=== PATIENT | male | born 1980 | race African-American/Black ===

== ENCOUNTER 2017-09-09 10:05 | Emergency (ER) | payer MEDICAID ==
[~2017-09-09] VITALS: Ht 182.9 cm; Wt 93.5 kg
[2017-09-09] MEDS ORDERED: OXYC10 PO (10:15)
[2017-09-09 10:25] LABS: APPEARANCE,URINE CLOUDY (CLEAR); BILIRUBIN,URINE NEGATIVE (NEGATIVE); GLUCOSE, URINE (UA) NEGATIVE (NEGATIVE); KETONES,URINE NEGATIVE (NEGATIVE); LEUKOCYTE ESTERASE ,URINE LARGE (NEGATIVE); NITRATE,URINE NEGATIVE (NEGATIVE); OCCULT BLOOD,URINE TRACE (NEGATIVE); PROTEIN,URINE NEGATIVE (NEGATIVE)
[2017-09-09 11:00] LABS: WBC,URINE 51-100 /HPF (0-5)
[2017-09-09 11:02] LABS: BACTERIA,URINE Few /HPF (None Seen)
[2017-09-09] MEDS ORDERED: CefTRIAXone SODIUM 1 GM/VIAL IM ONE (11:45)
[2017-09-09] MEDS ORDERED: AZITHROMYCIN 250 MG TABLET PO ONE (11:45)
[2017-09-09 12:28] VITALS: BP 111/81
[2017-09-09] MEDS ORDERED: LIDOCAINE HCL/PF 1% 2 ML VIAL IM ONE (12:30)
== END 2017-09-09 12:37 | disposition home or self-care (01) ==
LOC: EMS 10:08
DX: N39.0 Urinary tract infection, site not specified (principal); N34.2 Other urethritis
CPT/HCPCS: 81001; 87086; 96372; 99284; J0696; J3490